=== PATIENT | male | born 1945 | race Caucasian/White ===

== ENCOUNTER 2018-05-14 13:36 | Emergency (ER) | payer MEDICARE, BC | END 2018-05-14 14:50 | disposition home or self-care (01) | LOC: M ED 13:36 | DX: S81.812A Laceration without foreign body, left lower leg, initial encounter (principal); W22.8XXA Striking against or struck by other objects, initial encounter; Y92.009 Unspecified place in unspecified non-institutional (private) residence as the place of occurrence of the external cause; I10 Essential (primary) hypertension; J45.909 Unspecified asthma, uncomplicated; E78.5 Hyperlipidemia, unspecified; Z79.82 Long term (current) use of aspirin; Z79.899 Other long term (current) drug therapy | CPT/HCPCS: 99282 ==